=== PATIENT | male | born 1975 | race Caucasian/White ===

== ENCOUNTER 2018-04-01 01:53 | Emergency (ER) | payer SELFPAY ==
--- NOTE | 2018-04-01 08:01 | RAD ---
RIGHT SHOULDER 3 VIEWS: HISTORY: Right shoulder injury. FINDINGS: Acromioclavicular and glenohumeral alignment are maintained. Postoperative changes of the humeral he ad and glenoid. No acute fracture, dislocation, or aggressive osseous erosions. IMPRESSION: Postoperative changes. No acute osseous abnormalities are demonstrated. POS: [facility]
== END 2018-04-01 04:04 | disposition home or self-care (01) ==
LOC: ERS 01:53
DX: S43.401A Unspecified sprain of right shoulder joint, initial encounter (principal); F32.9 Major depressive disorder, single episode, unspecified; F98.8 Other specified behavioral and emotional disorders with onset usually occurring in childhood and adolescence; F17.210 Nicotine dependence, cigarettes, uncomplicated; W19.XXXA Unspecified fall, initial encounter

== ENCOUNTER 2021-09-27 13:36 | Outpatient (CLI) | payer OTHER | END 2021-09-27 13:37 | disposition home or self-care (01) | LOC: SLEEPLAB 13:36 | PROVIDERS: ATTEND Internal Medicine | DX: G47.33 Obstructive sleep apnea (adult) (pediatric) (principal); R53.83 Other fatigue; R06.83 Snoring; F32.9 Major depressive disorder, single episode, unspecified; F41.9 Anxiety disorder, unspecified; I10 Essential (primary) hypertension; K21.9 Gastro-esophageal reflux disease without esophagitis; G47.00 Insomnia, unspecified; R09.02 Hypoxemia | CPT/HCPCS: 95800 ==

== ENCOUNTER 2022-02-01 16:16 | Emergency (ER) | payer SELFPAY ==
[2022-02-01 16:50] LABS: #Eosinphils 0.1 thou/uL (0.0-0.7); #Lymphocytes 1.4 thou/uL (1.20-3.40); #Monocytes 0.7 thou/uL (0.11-0.59); #Neutrophils 5.3 thou/uL (1.40-6.50); %Basophils 0.5 % (0.0-1.0); %Eosinophils 1.5 % (0.0-10.0); %Lymphocytes 18.8 % (21.0-51.0); %Monocytes 9.4 % (0.0-10.0); %Neutrophils 69.8 % (42.0-75.0); Hemoglobin 16.7 g/dL (14.0-18.0); Mean Corpuscular HGB CONC 34.2 g/dL (32.0-36.0); Mean Corpuscular Hemoglobin 33.5 pg (27.0-31.0); Mean Platelet Volume 6.3 fL (7.4-10.4); Platelet Count 210 thou/uL (130-400); RBC Distribution Width 12.3 % (11.5-14.5); Red Blood Cell (RBC) Count 4.99 mill/uL (4.70-6.10); White Blood Cell (WBC) Count 7.6 thou/uL (4.8-10.8)
[2022-02-01 17:25] LABS: ALT (SGPT) 121 U/L (8-55); AST (SGOT) 108 U/L (5-34); Albumin 4.6 g/dL (3.5-5.0); Alkaline Phosphatase 43 U/L (40-110); Anion Gap 19 mmol/L (10-20); BUN (Urea Nitrogen) 8 mg/dL (8.9-20.6); Bilirubin, Total 0.7 mg/dL (0.2-1.2); Calc. Creatinine Clearance 0 mL/min (70-130); Calcium 9.5 mg/dL (7.8-10.44); Carbon Dioxide 21 mmol/L (22-29); Chloride 95 mmol/L (98-107); Estimated GFR 108; Globulin 2.9 g/dL (2.4-3.5); Glucose 92 mg/dL (70-105); Lipase 38 U/L (8-78); Potassium 4.1 mmol/L (3.5-5.1); Protein, Total 7.5 g/dL (6.0-8.3); Sodium 131 mmol/L (136-145)
== END 2022-02-01 20:30 | disposition home or self-care (01) ==
LOC: ERS 16:16
DX: R07.89 Other chest pain (principal); B34.9 Viral infection, unspecified; I10 Essential (primary) hypertension; F17.210 Nicotine dependence, cigarettes, uncomplicated; Z79.899 Other long term (current) drug therapy
CPT/HCPCS: 36415; 71045; 80053; 83690; 84443; 84484; 85025; 93005